=== PATIENT | male | born 1965 | race Caucasian/White ===

== ENCOUNTER 2017-03-09 19:48 | Emergency (ER) | payer OTHER ==
[~2017-03-09 19:48] MED LIST: AUGMENTIN 875 M1 TAB PO; LEVAQUIN500 MG PO; POLYTRIM O200 GTT/BO OP; PREDNISONE10 MG PO; PROAIR HFA0.09 MG/Ac INH; ROBITUSSIN W/CO10 ML PO
--- NOTE | 2017-03-09 19:58 | ED EYE COMPLAINT ---
History of Present Illness General Chief Complaint: Eye Problems Stated Complaint: PT HURT HIS LT EYE AND HAS PAIN Source: patient, old records Exam Limitations: no limitations Vital Signs & Intake/Output Vital Signs & Intake/Output Vital Signs Date Time Temp Pulse Resp B/P B/P Pulse O2 O2 Flow FiO2 Mean Ox Delivery Rate 03/09 2045 160/76 03/09 1953 98.0 100 24 178/97 99 Allergies Coded Allergies: NO KNOWN ALLERGIES (03/09/17) Reconcile Medications Ketorolac Tromethamine (Acular) 0.5 % DROPS 1 GTT OPH 4 TIMES/DAY EYE PAIN Oxycodone HCl/Acetaminophen (Percocet 5-325 MG Tablet) 5 MG-325 MG TABLET 1 TAB PO BID PRN PAIN Triage Note: PER PT WORK RELATED INJURY PIECE OF METAL IN L EYE Saturday SEEN BY EYE SURGEON OF [place], GIVEN DROPS BUT REMAINS PAINFUL. UTD WITH TETANUS Triage Nurses Notes Reviewed? yes Onset: Abrupt Duration: day(s): (4), constant Timing: recent history Injury Environment: work Severity: moderate, severe Severity Numbers: 10 No Modifying Factors: none Left Eye Associated Symptoms: burning, pain HPI: 51-year-old male presents to the ER for evaluation complain of moderate to severe aching throbbing left eye pain for the past 4 days after he sustained injury while at work when he sits piece of metal got in his eye he went to go see his eye surgeon and Taniya replacement antibiotic drops and prednisolone drops which she's been taking hours states the pain persist. He states that he was examined at that time and there is no foreign body seen. He is scheduled to see the doctor again on Saturday no fever no chills he states his vision is blurry however he denies loss of vision, right eye symptoms fevers chills swelling to his face or any other complaints (BELLE KAUFFMAN) Past History Travel History Traveled to [place] past 21 day No Medical History Any Pertinent Medical History? none Neurological: NONE EENT: NONE Cardiovascular: NONE Respiratory: NONE Gastrointestinal: NONE Hepatic: NONE Renal: NONE Musculoskeletal: NONE Psychiatric: NONE Endocrine: NONE Blood Disorders: NONE Cancer(s): NONE BAND SPLICER/Reproductive: NONE Surgical History Surgical History: ARTIFICAL L EYE LENS NECK PLATES HERNIA REPAIR Psychosocial History What is your primary language Swedish Tobacco Use: Current Daily Use Daily Tobacco Use Amount/Type: => 5 Cigarettes daily Family History Hx Contributory? No (BELLE KAUFFMAN) Review of Systems Review of Systems Constitutional: Reports: see HPI. All Other Systems: Reviewed and Negative Comments Review of systems: See HPI, All other systems negative. Constitutional, no chills no fever, no malaise HEENT: No visual changes no sore throat no congestion, no ear pain Cardiovascular: No chest pain , no palpitation Skin: no rashes, no change in skin Respiratory: No dyspnea no cough no sputum GI: No nausea no vomiting, no diarrhea, Muscle skeletal: No joint pain, no joint swelling, no back pain, no neck pain, Neurologic: no headache Psych: No stress heme: no brusiing, no bleeding Immunology: No lymphadenopathy (BELLE KAUFFMAN) Physical Exam General Appearance: well developed/nourished General Inspection: normal inspection Eyelid: normal inspection, everted for exam, no fb Conjunctiva/Sclera: injected Cornea: normal inspection, examined w/fluorescein EOM: intact, entrapment Pupil: normal accommodation, normal pupil, PERRL General Inspection: normal inspection Eyelid: normal inspection Conjunctiva/Sclera: normal inspection Cornea: normal inspection EOM: intact Pupil: normal accommodation, normal pupil, PERRL Physical Exam Comments: Well-developed well-nourished patient in no apparent distress. Head/Face: Atraumatic, no facial swelling Eyes: PERRL, EOMI, no conjunctival injection.no rust ring, no abrasion, ulceration No nystagmus Ear:External auditory canals clear, no erythema, no FB. Nose: atraumatic.Normal inspection Throat: Moist mucous membranes. Neck: Supple, no lymphadenopathy, FROM Back: FROM Cardiovascular: Regular rate and rhythms no murmurs Respiratory: Patient speaking in full complete sentences. Breath sounds clear to auscultation bilaterally: NO W/R/R Extremities: full range of motion Neuro: awake, alert, and oriented to person, place and time. There were no obvious focal neurologic abnormalities. Skin: Warm & dry;No appreciable rash on exposed skin Psych: Mood affect normal, normal memory normal judgment. (BELLE KAUFFMAN) Progress Differential Diagnosis: corneal abrasion, corneal foreign body, conjunctivitis, detached retina, glaucoma Plan of Care: Eyelids were everted Q-tip was run under both there is no visualized foreign body I discussed with the patient at length all of their results. I had an extensive conversation regarding need for close follow up with ophtho this week as well as return precautions. there is no rust ring, d/w pt possibility of a fb not seen on examination still exsits, need for f/u with optho I answered all of their questions, they feel comfortable with the plan and follow-up care. (BELLE KAUFFMAN) Departure Departure Time of Disposition: 2008 Disposition: HOME OR SELF CARE Condition: Stable Clinical Impression Primary Impression: Eye pain Referrals: ROBERT YORK,AYUSH Frsaer (PCP/Family) Additional Instructions: FOLLOW UP WITH YOUR EYE SURGEON IN [place] on Saturday. The possibility of foreign body not seen on examination still exist CONTINUE USING THE DROPS PROVIDED LAST WEEK. ACULAR EYE DROPS AND PERCOCET DIRECTED. THIS IS A NARCOTIC , NO DRIVING OR DRINKING ALCOHOL WHILE TAKING. Departure Forms: Customer Survey Employee [employer] General Discharge Information Prescriptions: Current Visit Scripts Oxycodone HCl/Acetaminophen (Percocet 5-325 MG Tablet) 1 TAB PO BID PRN PAIN #10 TAB Ketorolac Tromethamine (Acular) 1 GTT OPH 4 TIMES/DAY #5 ML (BELLE KAUFFMAN) PA/MOLD BREAKER Co-Sign Statement Statement: ED Attending supervision documentation- I saw and evaluated the patient. I have also reviewed all the pertinent lab results and diagnostic results. I agree with the findings and the plan of care as documented in the PA's/MOLD BREAKER's documentation. x I have reviewed the ED Record and agree with the PA's/MOLD BREAKER's documentation. [] Additions or exceptions (if any) to the PAs/MOLD BREAKER's note and plan are summarized below: [] (MARLEE YORK,BENJI)
[2017-03-09] MEDS ORDERED: PERCOCET 5-3251 EACH PO (20:11)
[2017-03-09] MEDS ORDERED: ACULAR5 ML OPH (20:11)
[2017-03-09 20:45] VITALS: BP 160/76
== END 2017-03-09 20:47 ==
LOC: ERH 19:48
DX: H57.12 Ocular pain, left eye (principal)